=== PATIENT | male | born 1965 | race Caucasian/White ===

== ENCOUNTER 2019-08-07 | Observation (INO) | payer SELFPAY ==
[~2019-08-07] MED LIST: CIPRO500 MG OR; FLOMAX0.4 MG OR; LORTAB 5 OR; NAPROSYN500 MG OR; NO HOME MEDS; ZOFRAN ODT8 MG OR
--- NOTE | 2019-08-07 14:11 | NUR ---
PT TO ROOM VIA EMS STRETCHER. PER EMS PT TOOK A MIXTURE OF MEDICATIONS. PT REPORTS TAKING HIS SONS AND UNCLES MEDICATIONS, APPROX 24 PILLS. PT KNOWS HE TOOK AN UNKNOWN AMOUNT OF RISPERIDONE. PT ALERT BUT DROWSY. ANSWERING QUESTIONS APPROPRIATELY. PT REPORTS TAKING MEDICATIONS TO KILL HIMSELF. MD AT BEDSIDE.
--- NOTE | 2019-08-07 14:15 | NUR ---
MONITOR SHOWING 140'S SINUS RHYTHM. EMS IV FLUIDS INFUSING WITH NO DIFFICULTY. PUPILS AT A 2 AND SLUGGISH. BILATERAL LS CLEAR BUT DIMINISHED TO THE LOWER LOBES. PT COOPERATIVE AND TALKING WITH STAFF. SKIN HOT AND DRY, RECTAL TEMPERATURE TAKEN AND IS 99.4. SPO2 91% ON ROOM AIR. PT DENIES ANY SOB OR PAIN. WHEN QUESTIONING PT TO WHY HE ATTEMPTED SUICIDE HE STATES "I'M ON PROBATION, NO ONE CAN TRUST ME. I LOST MY JOB AND CAN'T FIND ANOTHER ONE. I'M JUST NO GOOD, I'M JUST NO GOOD". PT CLOTHING AND BELONGINGS REMOVED AND BAGGED. PT'S GLASSES REMAIN ON.
--- NOTE | 2019-08-07 14:15 | NUR ---
MORRIS ACT INITIATED. PT AWARE OF PLAN OF CARE AND NEED TO MONITOR.
[2019-08-07 14:39] LABS: HEMATOCRIT 44.8 % (39.0-50.0); HEMOGLOBIN 15.5 g/dl (14.0-18.0); IMMATURE GRANULOCYTES 0.3 % (0.0-5.0); MEAN CELL VOLUME 88.7 fL CALC (80.0-100.0); MEAN CORPUSCULAR HGB 30.7 pG CALC (26.0-32.0); MEAN CORPUSCULAR HGB CONC 34.6 g/L CALC (32.0-36.0); NEUT# 5.46 thou/uL (1.82-7.42); RED BLOOD COUNT 5.05 mill/uL (4.70-6.10); RED CELL DISTRI WIDTH 12.6 % (11.5-15.5)
[2019-08-07 15:01] LABS: ALBUMIN 4.3 g/dL (3.2-5.0); ALKALINE PHOSPHATASE 75 u/l (38-126); AMYLASE 37 u/l (30-110); BILIRUBIN, TOTAL 1.1 mg/dL (0.0-1.4); BUN 19 mg/dL (9-20); BUN/CREATININE RATIO 28 (12-20 (CALC)); CHLORIDE 107 mmol/l (95-108); CPK 61 u/l (52-200); CREATININE 0.7 mg/dL (0.7-1.3); ETHYL ALCOHOL 0 mg/dl (0-30); GFR > 60 ML/MIN (>=60 (CALC)); GFR FOR AFR.AMER. > 60 ML/MIN (>=60 (CALC)); MAGNESIUM 1.7 mg/dL (1.6-2.3); PHENYTOIN (DILANTIN) < 3 ug/mL (10 - 20); SGOT/AST 23 u/l (17-59); SODIUM 136 mmol/l (137-146); TOTAL PROTEIN 6.7 g/dL (6.3-8.2)
[2019-08-07 15:03] LABS: ANION GAP 14 (6-22 (CALC)); CARBON DIOXIDE 19 mmol/l (22-30); DIGOXIN < 0.4 ng/mL (0.8-2.0); POTASSIUM 3.7 mmol/l (3.5-5.1)
--- NOTE | 2019-08-07 15:09 | NUR ---
REPORT TO DENEEN/CLINTON DRAKE. PT RESTING COMFORTABLY IN STRETCHER IN NAD WITH EYES CLOSED. PT AWAKENS TO VERBAL STIMULI. CALL CALL WITHIN [facility].
[2019-08-07 15:38] LABS: URINE BILIRUBIN - DIPSTICK NEGATIVE (NEGATIVE); URINE BLOOD DIPSTICK NEGATIVE (NEGATIVE); URINE COLOR YELLOW; URINE GLUCOSE - DIPSTICK NEGATIVE (NEGATIVE); URINE KETONE NEGATIVE (NEGATIVE); URINE LEUK ESTERASE NEGATIVE (NEGATIVE); URINE NITRITE - DIPSTICK NEGATIVE (Negative); URINE PH 7.5 (4.5-8.0); URINE PROTEIN - DIPSTICK NEGATIVE (NEG-TRACE); URINE UROBILINOGEN - DIPSTICK 0.2 E.U./dL (0.2)
[2019-08-07 15:39] LABS: BARBITURATES NEGATIVE (NEGATIVE); COCAINE NEGATIVE (NEGATIVE); METHADONE NEGATIVE (NEGATIVE); OXCYCODONE NEGATIVE (NEGATIVE); TETRAHYDROCANNABIONOL NEGATIVE (NEGATIVE); TRICYLIC ANTIDEPRESSANTS NEGATIVE (NEGATIVE)
--- NOTE | 2019-08-07 15:45 | NUR ---
PT RESTING IN STRETCHER IN NAD. SITTER REMAINS AT BEDSIDE. IV FLUIDS INFUSING.
--- NOTE | 2019-08-07 16:25 | NUR ---
PT VOIDED 625 MLS OF YELLOW URINE.
--- NOTE | 2019-08-07 16:30 | NUR ---
PT C/O PAIN TO IV SITE. NO INFILTRATION NOTED. SITE REMOVED AND NEW IV INITIATED. PT RESTING IN STRETCHER IN NAD AND REMAINS A&O X4.
--- NOTE | 2019-08-07 17:00 | NUR ---
DAUGHTER DOMINIQUE AT BEDSIDE SHE TOOK PT'S SHIRT, PANTS, WALLET, CELL PHONE, RETAIL ADVERTISING ACCOUNT EXECUTIVE AND PACK OF CIGARETTES. SHE REQUESTED TO BE CONTACTED WHEN HE GOES TO C[facility] OR IS ADMITTED. HER CONTACT NUMBER IS [phone].
--- NOTE | 2019-08-07 17:05 | NUR ---
PT RESTING IN STRETCHER, HE REMAINS DROWSY BUT IS A&O X 4. SITTER REMAINS AT BEDSIDE.
--- NOTE | 2019-08-07 17:35 | NUR ---
PT VOIDED 700 MLS OF PALE YELLOW URINE.
--- NOTE | 2019-08-07 19:00 | NUR ---
RECEIVED REPORT FROM LÓPEZ MCNALLY. PT BEDRESTING. PSA AT BEDSIDE. DENIES DISTRESS AT THIS TIME. LAB HERE FOR FURTHER BLOODWORK
[2019-08-07 19:26] LABS: ALKALINE PHOSPHATASE 76 u/l (38-126); ANION GAP 12 (6-22 (CALC)); BUN 14 mg/dL (9-20); BUN/CREATININE RATIO 20 (12-20 (CALC)); CARBON DIOXIDE 22 mmol/l (22-30); CHLORIDE 109 mmol/l (95-108); CREATININE 0.7 mg/dL (0.7-1.3); GFR > 60 ML/MIN (>=60 (CALC)); GFR FOR AFR.AMER. > 60 ML/MIN (>=60 (CALC)); SGOT/AST 21 u/l (17-59); SODIUM 139 mmol/l (137-146); TOTAL PROTEIN 6.3 g/dL (6.3-8.2)
--- NOTE | 2019-08-07 20:00 | NUR ---
ATE 100% OF SUPPER-TOLERATED WELL. AWAITING BED ASSIGNMENT. TO BE ADMITTED AND OBSERVED (OVERNIGHT) RECOMMENDED BY POSION CONTROL
--- NOTE | 2019-08-07 20:46 | NUR ---
REPORT CALLED TO ABDULKADIR. AND TO ICU 4 AT THIS TIME
--- NOTE | 2019-08-07 20:55 | NUR ---
PT. ARRIVES VIA WHEELCHAIR FROM ER. ABMULATORY WITH STEADY GAIT FROM WHEELCHAIR TO BED IN NO DISTRESS WITHOUT ASSISTANCE. PT. AWAKE, ALERT, ORIENTED X 3. SKIN WARM AND DRY. DENIES COMPLAINTS OF PAIN OR NEED AT THIS TIME. BORGES. PRAVIN. RESPS EVEN AND UNLABORED. LUNGS CTA. BOWEL SOUNDS ACTIVE. LAST BM WAS TODAY AND NORMAL. SITTER AT BEDSIDE AT THIS TIME. WILL CONTINUE TO CLOSELY MONITOR.
[2019-08-07 21:15] VITALS: BP 104/64
[2019-08-07 21:30] VITALS: BP 102/70
[2019-08-07 21:45] VITALS: BP 98/65
[2019-08-07 22:00] VITALS: BP 116/65
--- NOTE | 2019-08-07 22:34 | NUR ---
SITTER REMAINS AT BEDSIDE WITH PATIENT. PT. REMAINS IN NO DISTRESS. CALL LIGHT REMAINS WITHIN REACH. REPSP REMAIN EVEN AND UNLABORED. BP/HR STABLE. WILL CONTINUE TO CLOSELY MONITOR.
[2019-08-08] VITALS (7 sets, daily range): BP systolic 83–102; BP diastolic 55–70
--- NOTE | 2019-08-08 00:15 | NUR ---
PT. REMAINS STABLE WITHOUT COMPLAINTS AT THIS TIME. REMAINS COOPERATIVE. VOICES NO COMPLAINTS OR NEEDS. CALL LIGHT AND SITTER REMAIN PRESENT. WILL CONTINUE TO CLOSELY MONITOR.
--- NOTE | 2019-08-08 02:10 | NUR ---
PT. REMAINS WITH SITTER AT BEDSIDE. RESTING WITH EYES CLOSED IN NO DISTRESS. REMAINS SINUS AND STABLE ON THE MONITOR. CALL LIGHT WITHIN REACH.
--- NOTE | 2019-08-08 04:05 | NUR ---
PT. REMAINS RESTING IN BED IN NO DISTRESS. IV FLUIDS CONTINUE TO INFUSE ORDERED. SKIN REMAINS WARM AND DRY. AFEBRILE. REMAINS EASILY AROUSABLE TO LIGHT VERBAL STIMULI. SITTER REMAINS PRESENT AT BEDSIDE.
--- NOTE | 2019-08-08 05:05 | NUR ---
LAB AT BEDSIDE AT THIS TIME TO DRAW PATIENT. REMAINS EASILY AROUSABLE TO LIGHT VERBAL STIMULI. SITTER REMAINS AT BEDSIDE.
[2019-08-08 05:16] LABS: HEMATOCRIT 45.1 % (39.0-50.0); HEMOGLOBIN 15.4 g/dl (14.0-18.0); IMMATURE GRANULOCYTES 0.3 % (0.0-5.0); MEAN CELL VOLUME 89.5 fL CALC (80.0-100.0); MEAN CORPUSCULAR HGB 30.6 pG CALC (26.0-32.0); MEAN CORPUSCULAR HGB CONC 34.1 g/L CALC (32.0-36.0); NEUT# 5.42 thou/uL (1.82-7.42); RED BLOOD COUNT 5.04 mill/uL (4.70-6.10); RED CELL DISTRI WIDTH 12.9 % (11.5-15.5)
[2019-08-08 05:44] LABS: ALBUMIN 4.1 g/dL (3.2-5.0); ALKALINE PHOSPHATASE 73 u/l (38-126); ANION GAP 11 (6-22 (CALC)); BUN 13 mg/dL (9-20); BUN/CREATININE RATIO 17 (12-20 (CALC)); CARBON DIOXIDE 20 mmol/l (22-30); CHLORIDE 109 mmol/l (95-108); CREATININE 0.8 mg/dL (0.7-1.3); GFR > 60 ML/MIN (>=60 (CALC)); GFR FOR AFR.AMER. > 60 ML/MIN (>=60 (CALC)); SGOT/AST 19 u/l (17-59); SODIUM 137 mmol/l (137-146); TOTAL PROTEIN 6.4 g/dL (6.3-8.2)
--- NOTE | 2019-08-08 07:00 | NUR ---
REPORT FROM ABDULKADIR MCNALLY. PT RESTING IN BED. ALERT AND ORIENTED. NO APPARENT DISTRESS NOTED. PT DENIES ANY PAIN OR DISCOMFORT. PT NOT CURRENTLY HAVING ANY SUCIDAL THOUGHTS. IV SITE APPEARS HEALTHY. DISCUSSED POC. PT VERBALIZED UNDERSTANDING. CALL LIGHT WITHIN REACH. WILL CONTINUE TO MONITOR.
--- NOTE | 2019-08-08 08:12 | NUR ---
DR. VALVERDE AT BEDSIDE.
--- NOTE | 2019-08-08 10:15 | NUR ---
PT RESTING IN BED WITH EYES CLOSED. VSS. PT WAKES EASILY. NO APPARENT DISTRESS NOTED. PT DENIES ANY CURRENT WANTS OR NEEDS. CALL LIGHT WITHIN REACH. WILL CONTINUE TO MONITOR.
--- NOTE | 2019-08-08 11:35 | NUR ---
SET PT UP FOR BATH. PT DRESSED IN OWN CLOTHES READY FOR TRANSFER TO CSU.
--- NOTE | 2019-08-08 12:11 | NUR ---
[facility] NOTIFIED AT THIS TIME FOR TRANSFER TO [facility].
--- NOTE | 2019-08-08 12:28 | NUR ---
PT LEFT AMBULATORY WITH OFFICER.
== END 2019-08-08 12:28 | disposition designated cancer center or children's hospital (05) | DRG 918 ==
PROVIDERS: ADMIT Internal Medicine
DX: T43.592A Poisoning by other antipsychotics and neuroleptics, intentional self-harm, initial encounter (principal); T50.912A Poisoning by multiple unspecified drugs, medicaments and biological substances, intentional self-harm, initial encounter; F31.9 Bipolar disorder, unspecified; F17.200 Nicotine dependence, unspecified, uncomplicated; Z91.5 Personal history of self-harm
CPT/HCPCS: J1650

== ENCOUNTER 2019-12-22 15:13 | Observation (INO) | payer SELFPAY ==
[~2019-12-22] VITALS: Ht 175.3 cm; Wt 80.6 kg
--- NOTE | 2019-12-22 15:42 | NUR ---
PT AMBULATED TO RM 8 WITH STEADY GAIT. REFUSED W/C ASSISTANCE.
--- NOTE | 2019-12-22 15:42 | NUR ---
PT CHANGED TO GOWN. MONITORS APPLIED. SKIN PINK WARM AND DIAPHORETIC. PT AO X 3. PT REPORTS DIAPHORETIC SINCE YESTERDAY INCREASING SHORTNESS OF BREATH WITH COUGH TODAY. PT HAS EXPIRATORY WHEEZING LEFT CHEST WHICH CLEARS WITH COUGH
--- NOTE | 2019-12-22 16:26 | NUR ---
PT RESTING ON STRETCHER AWAITING RESULTS
[2019-12-22 16:32] LABS: HEMATOCRIT 47.1 % (39.0-50.0); HEMOGLOBIN 15.8 g/dl (14.0-18.0); IMMATURE GRANULOCYTES 0.2 % (0.0-5.0); MEAN CELL VOLUME 90.1 fL CALC (80.0-100.0); MEAN CORPUSCULAR HGB 30.2 pG CALC (26.0-32.0); MEAN CORPUSCULAR HGB CONC 33.5 g/dL CAL (32.0-36.0); NEUT# 7.85 thou/uL (1.82-7.42); RED BLOOD COUNT 5.23 mill/uL (4.70-6.10); RED CELL DISTRI WIDTH 12.8 % (11.5-15.5)
[2019-12-22 16:53] LABS: ALBUMIN 4.7 g/dL (3.2-5.0); ALKALINE PHOSPHATASE 89 u/l (38-126); ANION GAP 13 (6-22 (CALC)); BILIRUBIN, TOTAL 1.1 mg/dL (0.0-1.4); BUN 14 mg/dL (9-20); BUN/CREATININE RATIO 16 (12-20 (CALC)); CHLORIDE 103 mmol/l (95-108); CREATININE 0.9 mg/dL (0.7-1.3); GFR > 60 ML/MIN (>=60 (CALC)); GFR FOR AFR.AMER. > 60 ML/MIN (>=60 (CALC)); POTASSIUM 3.7 mmol/l (3.5-5.1); SGOT/AST 28 u/l (17-59); SODIUM 137 mmol/l (137-146); TOTAL PROTEIN 7.3 g/dL (6.3-8.2)
[2019-12-22 16:55] LABS: CARBON DIOXIDE 25 mmol/l (22-30)
[2019-12-22] MEDS ORDERED: CYCLOBENZAPR5 MG PO (17:24)
--- NOTE | 2019-12-22 19:25 | NUR ---
REPORT GIVEN TO KEVIN MCNALLY MED SURG. PT TAKEN VIA WHEELCHAIR, TELEMETRY IN PLACE TO MED SURG
--- NOTE | 2019-12-22 19:34 | NUR ---
PT ARRIVES TO UNIT VIA WC, ACCOMPANIED BY Chai NAVARRO RN. ADMITTED TO ROOM 288.
[2019-12-22 19:40] VITALS: BP 114/79
--- NOTE | 2019-12-22 19:45 | NUR ---
ADMISSION ASSESMENT COMPLETE. PLAN OF CARE REVIEWED. PT VERBALIZES UNDERSTANDING AND DENIES QUESTIONS. PT DENIES NEEDS AT THIS TIME. PERSONAL ITEMS WITHIN REACH. BED LOCKED IN LOW POSITION W/ BEDRAILS UP X2. CALL CALL WITHIN REACH, AGREES TO CALL PRN.
--- NOTE | 2019-12-22 22:30 | NUR ---
400 ML CLEAR YELLOW URINE EMPTIED FROM BEDSIDE URINAL.
[2019-12-22 23:04] LABS: URINE BILIRUBIN - DIPSTICK NEGATIVE (NEGATIVE); URINE BLOOD DIPSTICK NEGATIVE (NEGATIVE); URINE CLARITY CLEAR; URINE COLOR YELLOW; URINE GLUCOSE - DIPSTICK NEGATIVE (NEGATIVE); URINE KETONE NEGATIVE (NEGATIVE); URINE LEUK ESTERASE NEGATIVE (Negative); URINE NITRITE - DIPSTICK NEGATIVE (Negative); URINE PROTEIN - DIPSTICK NEGATIVE (NEG-TRACE); URINE SPECIFIC GRAVITY 1.015; URINE UROBILINOGEN - DIPSTICK 0.2 E.U./dL (0.2)
[2019-12-22 23:50] VITALS: BP 116/80
--- NOTE | 2019-12-23 00:20 | NUR ---
OBSTETRICS/GYNECOLOGY NURSE AT BEDSIDE TO DRAW TROPONIN LEVEL.
--- NOTE | 2019-12-23 01:15 | NUR ---
TROPIN RESULTS RECEIVED, RESULTS NEGATIVE. NO FURTHER INTERVENTION NEEDED AT THIS TIME.
[2019-12-23 04:09] VITALS: BP 103/64
--- NOTE | 2019-12-23 04:52 | NUR ---
PT APPEARS TO BE RESTING COMFORTABLY IN BED, RESPIRATIONS REGUALR AND UNLABORED. PT DENIES NEEDS AT THIS TIME. PERSONAL ITEMS REMAIN WITHIN REACH. BED REMAINS LOCKED IN LOW POSITION WITH BEDRAILS UP X2. CALL CALL REMAINS WITHIN REACH, AGREES TO CALL PRN.
--- NOTE | 2019-12-23 05:56 | NUR ---
PLODDING OPERATOR AT BEDSIDE TO DRAW 0600 TROPONIN
--- NOTE | 2019-12-23 06:39 | NUR ---
TROPONIN RESULTED, RESULTS NEGATIVE. NO FURTHER ACTION AT THIS TIME.
[2019-12-23 07:55] VITALS: BP 94/59
--- NOTE | 2019-12-23 07:55 | NUR ---
ASSESSMENT IS COMPLETED: IV SITE IS FREE FROM REDNESS OR EDEMA HR IS REG, PULSES ARE STRONG X4, ABD IS SOFT WITH ACTIVE BS. BREATH SOUND ARE CLEAR,BILATERALLY. NO C/O SOB. TELE MONITOR IN PLACE. CONTIUE TO OBSERVE AND MONITOR.
[2019-12-23] MEDS ORDERED: PREDNISONE10 MG PO (10:23)
[2019-12-23] MEDS ORDERED: ZITHROMAX250 MG PO (10:23)
--- NOTE | 2019-12-23 10:50 | NUR ---
IV SITE DISCONTINUED CATHETER INTACT. NO REDNESS OR EDEMA NOTED. DISCHARGE INSTRUCTIONS GIVEN AND VERBALIZED UNDERSTANDING.
--- NOTE | 2019-12-23 11:00 | NUR ---
Discharge instructions given. Patient verbalizes understanding of same. Discharged in stable condition via Wheelchair to Home with family. All belongings sent with pt.
== END 2019-12-23 11:00 | disposition home or self-care (01) | DRG 313 ==
LOC: ED 15:13 → ED-I 17:46 → ED 17:59 → MS2 18:00 → ED-I 18:00 → MS2 18:18
PROVIDERS: Family Medicine; ADMIT Internal Medicine; ATTEND Internal Medicine
DX: R07.9 Chest pain, unspecified (principal); J40 Bronchitis, not specified as acute or chronic; F31.9 Bipolar disorder, unspecified; F17.210 Nicotine dependence, cigarettes, uncomplicated; Z91.5 Personal history of self-harm; Z20.828 Contact with and (suspected) exposure to other viral communicable diseases
CPT/HCPCS: G0378

== ENCOUNTER 2021-05-03 14:02 | Emergency (ER) | payer SELFPAY ==
[~2021-05-03] VITALS: Ht 175.3 cm; Wt 72.0 kg
[~2021-05-03 14:02] MED LIST changes: +CYCLOBENZAPR5 MG PO; +PREDNISONE10 MG PO; +ZITHROMAX250 MG PO
[2021-05-03 15:37] LABS: HEMATOCRIT 45.8 % (39.0-50.0); HEMOGLOBIN 15.7 g/dl (14.0-18.0); IMMATURE GRANULOCYTES 0.2 % (0.0-5.0); MEAN CELL VOLUME 91.1 fL CALC (80.0-100.0); MEAN CORPUSCULAR HGB 31.2 pG CALC (26.0-32.0); MEAN CORPUSCULAR HGB CONC 34.3 g/dL CAL (32.0-36.0); NEUT# 11.07 thou/uL (1.82-7.42); RED BLOOD COUNT 5.03 mill/uL (4.70-6.10); RED CELL DISTRI WIDTH 12.4 % (11.5-15.5)
[2021-05-03 15:44] LABS: URINE BLOOD DIPSTICK NEGATIVE (NEGATIVE); URINE GLUCOSE - DIPSTICK NEGATIVE (NEGATIVE); URINE KETONE NEGATIVE (NEGATIVE); URINE LEUK ESTERASE NEGATIVE (NEGATIVE); URINE PH 5.5 (4.5-8.0); URINE PROTEIN - DIPSTICK 30 mg/dL (NEG-TRACE); URINE SPECIFIC GRAVITY >=1.030
[2021-05-03 15:48] LABS: URINE BILIRUBIN - DIPSTICK SMALL (NEGATIVE); URINE COLOR AMBER; URINE NITRITE - DIPSTICK POSITIVE (Negative)
[2021-05-03 15:57] LABS: PROTHROMBIN TIME 10.6 SECONDS (9.0-12.5)
[2021-05-03 16:02] LABS: ALBUMIN 4.6 g/dL (3.2-5.0); ALKALINE PHOSPHATASE 81 u/l (38-126); ANION GAP 15 (6-22 (CALC)); BUN 21 mg/dL (9-20); BUN/CREATININE RATIO 22 (12-20 (CALC)); CARBON DIOXIDE 25 mmol/l (22-30); CHLORIDE 98 mmol/l (95-108); GFR > 60 ML/MIN (>=60 (CALC)); GFR FOR AFR.AMER. > 60 ML/MIN (>=60 (CALC)); LIPASE 30 u/l (23-300); POTASSIUM 3.7 mmol/l (3.5-5.1); SGOT/AST 21 u/l (17-59); SODIUM 134 mmol/l (137-146); TOTAL PROTEIN 7.5 g/dL (6.3-8.2)
[2021-05-03 16:06] LABS: BILIRUBIN, TOTAL 2.2 mg/dL (0.0-1.4)
[2021-05-03 16:13] LABS: D-DIMER 0.38 mg/L (0.19-0.60)
[2021-05-03] MEDS ORDERED: VENTOLIN HFA IN (17:39)
[2021-05-03] MEDS ORDERED: MEDDOSEPAK PO (17:39)
[2021-05-03] MEDS ORDERED: ZPAK PO (17:39)
[2021-05-03 18:29] VITALS: BP 107/66
== END 2021-05-03 18:29 | disposition home or self-care (01) | DRG 203 ==
LOC: ED 14:02
DX: J40 Bronchitis, not specified as acute or chronic (principal); E86.0 Dehydration; E80.6 Other disorders of bilirubin metabolism; F31.9 Bipolar disorder, unspecified; F17.200 Nicotine dependence, unspecified, uncomplicated; Z20.822 Contact with and (suspected) exposure to COVID-19

== ENCOUNTER 2021-12-20 16:36 | Emergency (ER) | payer SELFPAY ==
[~2021-12-20] VITALS: Ht 175.3 cm; Wt 90.0 kg
[~2021-12-20 16:36] MED LIST changes: +MEDDOSEPAK PO; +VENTOLIN HFA IN; +ZPAK PO
[2021-12-20 16:47] VITALS: BP 130/75
[2021-12-20 17:00] VITALS: BP 114/70
[2021-12-20 17:45] LABS: HEMATOCRIT 44.7 % (39.0-50.0); HEMOGLOBIN 14.8 g/dl (14.0-18.0); IMMATURE GRANULOCYTES 0.1 % (0.0-5.0); MEAN CELL VOLUME 94.5 fL CALC (80.0-100.0); MEAN CORPUSCULAR HGB 31.3 pG CALC (26.0-32.0); MEAN CORPUSCULAR HGB CONC 33.1 g/dL CAL (32.0-36.0); NEUT# 5.89 thou/uL (1.82-7.42); RED BLOOD COUNT 4.73 mill/uL (4.70-6.10)
[2021-12-20 17:59] LABS: INTERNATIONAL NORMALIZED RATIO 0.9 RATIO (0.7-1.3); PROTHROMBIN TIME 9.7 SECONDS (9.0-12.5)
[2021-12-20 18:01] LABS: ALBUMIN 4.2 g/dL (3.2-5.0); ALKALINE PHOSPHATASE 70 u/l (38-126); ANION GAP 10 (6-22 (CALC)); BILIRUBIN, TOTAL 0.7 mg/dL (0.0-1.4); BUN 18 mg/dL (9-20); BUN/CREATININE RATIO 22 (12-20 (CALC)); CARBON DIOXIDE 28 mmol/l (22-30); CHLORIDE 104 mmol/l (95-108); CREATININE 0.8 mg/dL (0.7-1.3); GFR FOR AFR.AMER. > 60 ML/MIN (>=60 (CALC)); GFR OTHER RACES > 60 ML/MIN (>=60 (CALC)); POTASSIUM 3.9 mmol/l (3.5-5.1); SGOT/AST 27 u/l (17-59); SODIUM 138 mmol/l (137-146); TOTAL PROTEIN 6.5 g/dL (6.3-8.2)
[2021-12-20 18:13] LABS: MYOGLOBIN 23 ng/mL (0 - 121)
[2021-12-20] MEDS ORDERED: MECLIZINE25 MG PO (18:50)
[2021-12-20] MEDS ORDERED: VENTOLIN HFA108 MCG IN (18:50)
[2021-12-20] MEDS ORDERED: MEDDOSEPAK PO (18:50)
[2021-12-20 19:14] VITALS: BP 125/79
== END 2021-12-20 19:18 | disposition home or self-care (01) | DRG 203 ==
LOC: ED 16:36
PROVIDERS: Nurse Practitioner
DX: J40 Bronchitis, not specified as acute or chronic (principal); R42 Dizziness and giddiness; F31.9 Bipolar disorder, unspecified; F17.200 Nicotine dependence, unspecified, uncomplicated; Z20.822 Contact with and (suspected) exposure to COVID-19

== ENCOUNTER 2024-05-29 22:22 | Emergency (ER) | payer OTHER ==
[~2024-05-29] VITALS: Ht 175.3 cm; Wt 75.0 kg
[~2024-05-29 22:22] MED LIST changes: +MECLIZINE25 MG PO; +VENTOLIN HFA108 MCG IN
[2024-05-29] MEDS ORDERED: ACETAMINOPHEN 500 MG TAB PO ONE (22:30)
[2024-05-29] MEDS ORDERED: IBUPROFEN 800 MG/TAB PO ONE (22:30)
[2024-05-29 22:31] VITALS: BP 139/92
[2024-05-29 23:00] VITALS: BP 145/92
[2024-05-29 23:15] VITALS: BP 131/72
[2024-05-29 23:31] VITALS: BP 150/83
[2024-05-29 23:46] VITALS: BP 166/95
[2024-05-30 00:10] VITALS: BP 166/95
== END 2024-05-30 00:10 | disposition home or self-care (01) | DRG 552 ==
LOC: ED 22:22
DX: S16.1XXA Strain of muscle, fascia and tendon at neck level, initial encounter (principal); V49.49XA Driver injured in collision with other motor vehicles in traffic accident, initial encounter; W22.11XA Striking against or struck by driver side automobile airbag, initial encounter